=== PATIENT | male | born 1935 | race Caucasian/White ===

== ENCOUNTER → 2023-05-27 | Outpatient (CLI) | payer MEDICARE, OTHER, SELFPAY ==
--- NOTE | 2023-05-27 | IMM_PTH ---
PATIENT: CHRISTIANE HOLLAND LOC: [facility] U#:[id number] AGE/SX: 87/M ROOM: RE05/27/[address]: Dr. Tomasz Snow MD : 1935 BED: DIS: 05/27/2023 SPEC #: [id number] RECD: 05/29/23 14:06 STATUS: JOHAN RERadha #: [id number] MELISSA: 05/27/23 00:[address]: Tomasz Snow DEPT: IMMUNOHISTOCHEMISTRY RECD BY: Erma Alberto Tissues: B - PROSTATE RIGHT F - PROSTATE LEFT A - PROSTATE RIGHT Procedures: 34BE12 (add) P40 (add) 34BE12 (initial) PHYSICIAN & INSTITUTION [place] [id number] SPECIMEN INFORMATION: Tissue Source: A - Right apex prostate, B - Right mid prostate, F - Left base prostate Clinical Info: Elevated PSA Specimen Number: [id number] A, B & F CPT code: 51536, 45103 x5 METHODOLOGY: Deparaffinized sections of prefer/formalin-fixed tissue or PAP/DQ stained slides are incubated with monoclonal/polyclonal antibodies/oligonucleotide probes. Localization is made via biotin free immunoperoxidase method. Appropriate controls are performed and reacted as expected. Results on target cell population are indicated in the following table: RESULTS: ANTIBODY / CLONE RESULT Block A 34BE12 (34BE12) positive P40 (BC28) positive Block B 34BE12 (34BE12) negative P40 (BC28) negative Block F 34BE12 (34BE12) positive P40 (BC28) positive These tests were developed and their performance characteristics determined by [facility]. They may not have been cleared or approved by the U.[place]. Food and Drug Administration. The FDA has determined that such clearance or approval is not necessary. The above immunohistochemical/dualISH markers are ordered and reviewed by the Pathologist. INTERPRETATION: A. Right prostate, apex, core biopsy: Benign prostatic tissue. B. Right prostate, mid, core biopsy: Adenocarcinoma. F. Left prostate, base, core biopsy: Benign prostatic tissue. AM:dominic 05/30/2023
--- NOTE | 2023-05-27 13:30 | PROSBIL_PTH ---
PATIENT: CHRISTIANE HOLLAND LOC: [facility]#:[id number] AGE/SX: 87/M ROOM: RE05/27/[address]: Dr. Tomasz Snow MD : 1935 BED: DIS: 05/27/2023 SPEC #: [id number] RECD: 05/28/23 07:55 STATUS: JOHAN MARROQUIN #: [id number] MELISSA: 05/27/23 13:[address]: Tomasz Snow DEPT: SURGICAL PATHOLOGY RECD BY: Erma Alberto Tissues: A - PROSTATE RIGHT B - PROSTATE RIGHT C - PROSTATE RIGHT D - PROSTATE LEFT E - PROSTATE LEFT F - PROSTATE LEFT Procedures: PROSTATE BX HEADER OPERATION: Prostate biopsy PRE-OP DIAGNOSIS: Elevated PSA TISSUE SUBMITTED: A - Right apex, B - Right mid, C - Right base, D - Left apex, E - Left mid, F - Left base MICROSCOPIC DIAGNOSIS A. Right prostate, apex, core biopsy: Chronic prostatitis. B. Right prostate, mid, core biopsy: Adenocarcinoma. [place] grade: 6 (3+3) Cores involved: 1 out of 1 core Tissue involved: 5% Greatest tumor length: 1.5 millimeters See comment. C. Right prostate, base, core biopsy: Chronic inflammation. D. Left prostate, apex, core biopsy: Chronic prostatitis with focal acute prostatitis. E. Left prostate, mid, core biopsy: Chronic prostatitis. F. Left prostate, base, core biopsy: Chronic prostatitis. See comment. AM:dominic 05/29/2023 COMMENT B & F. Immunohistochemistry ([id number]) supports the above diagnosis. Case has been reviewed in consultation with Dr. Bean who concurs with the above diagnosis. IDC:[email or web address] MICROSCOPIC DESCRIPTION Slides are reviewed. GROSS DESCRIPTION A - Received is one container designated prostate, right apex. The specimen consists of one elongated fragment of light hansen-white soft tissue measuring 1.3 cm in length and 0.1 cm in diameter. The specimen is totally submitted in one cassette. B - Received is one container designated prostate, right mid. The specimen consists of one elongated fragment of light hansen-white soft tissue measuring 1.5 cm in length and 0.1 cm in diameter. The specimen is totally submitted in one cassette. C - Received is one container designated prostate, right base. The specimen consists of one elongated fragment of light hansen-white soft tissue measuring 1.5 cm in length and 0.1 cm in diameter. The specimen is totally submitted in one cassette. D - Received is one container designated prostate, left apex. The specimen consists of one elongated fragment of light hansen-white soft tissue measuring 1.6 cm in length and 0.1 cm in diameter. The specimen is totally submitted in one cassette. E - Received is one container designated prostate, left mid. The specimen consists of one elongated fragment of light hansen-white soft tissue measuring 1.4 cm in length and 0.1 cm in diameter. The specimen is totally submitted in one cassette. F - Received is one container designated prostate, left base. The specimen consists of one elongated fragment of light hansen-white soft tissue measuring 1.8 cm in length and 0.1 cm in diameter. The specimen is totally submitted in one cassette. / SJ:rg 05/28/2023 TC:0 CPT: G0146
== END | disposition home or self-care (01) ==
LOC: LABSPEC 15:46
PROVIDERS: Referring Provider Urology; Visit Provider Urology
DX: R97.20 Elevated prostate specific antigen [PSA] (principal)
CPT/HCPCS: 88305; 88341; 88342; G0416

== ENCOUNTER → 2024-02-16 | Outpatient (CLI) | payer MEDICARE, OTHER, SELFPAY | END | disposition home or self-care (01) | LOC: LAB 16:38 | PROVIDERS: PCP Student in an Organized Health Care Education/Training Program; Referring Provider Urology; Visit Provider Urology | DX: C61 Malignant neoplasm of prostate (principal) | CPT/HCPCS: 36415; 84153 ==

== ENCOUNTER → 2024-03-02 | Outpatient (CLI) | payer MEDICARE, OTHER, SELFPAY ==
--- NOTE | 2024-03-02 17:18 | CT_ITS ---
STUDY: CT ABDOMEN AND PELVIS WITH AND WITHOUT CONTRAST REASON FOR EXAM: Male, 88 years old. Gross Hematuria. Patient is on anticoagulants. Partial bowel resection. RADIATION DOSAGE (If Supplied By Facility): CTDIvol = ( 12.44 ) mGy, DLP = ( 1023.02 ) mGycm TECHNIQUE: Transaxial images were obtained from the dome of the diaphragm to the symphysis pubis without oral contrast. IV 100mL Isovue-370 was administered. Sagittal and coronal images were reconstructed. Individualized dose optimization techniques were used for this CT. COMPARISON: None. FINDINGS: Bilateral pleural effusions with bibasilar atelectasis and/or infiltrate. Loss of volume in the left hemithorax. There is a 3.8 cm x 1.8 cm pleural-based density in the lower hemithorax. A neoplastic process should be ruled out. Coronary artery calcification. Cardiomegaly. Small pericardial effusion. Normal liver. Normal gallbladder and extrahepatic biliary system. There is a faint 1.1 some hypodensity in the anterior midportion of the spleen. This is not a typical cyst. Normal pancreas. Normal bilateral adrenal glands. Normal right kidney. Normal left kidney. There is a small hiatal hernia. Normal small intestine. Partial right hemicolectomy. The patient is status post appendectomy. There is diffuse atherosclerotic calcification of the abdominal aorta and its major visceral branches, without a demonstrated aneurysm. Normal inferior vena cava. There is retroperitoneal lymphadenopathy with enlarged nodes greater than 10-15mm in the short axis. Normal urinary bladder. Prostatic enlargement with indentation at the bladder base. Calcification within the prostate. Normal abdominal wall. There are diffuse degenerative changes of the visualized lumbar spine. Loss of the normal lumbar lordosis. Findings suggestive of metastatic deposits seen within the axial and appendicular skeletons. CT/CT Abd/Pelvis W/WO Contrast IMPRESSION: Bilateral pleural effusions and pericardial effusion. Bibasilar infiltration and/or atelectasis with possible pleural-based mass in the left lateral aspect of the hemithorax. Prostatic enlargement with indentation at the bladder base. Partial right hemicolectomy. Findings suggestive of bony metastasis. Electronically Signed: Giuseppe Abdullahi MD at 14:45 EDT ,
== END | disposition home or self-care (01) ==
LOC: CT 17:05
PROVIDERS: PCP Student in an Organized Health Care Education/Training Program; Referring Provider Urology; Visit Provider Urology
DX: R31.0 Gross hematuria (principal)
CPT/HCPCS: 74178; Q9967

== ENCOUNTER → 2024-03-09 | Outpatient (CLI) | payer MEDICARE, OTHER, SELFPAY ==
[2024-03-02 21:11] LABS: CREATININE FINGERSTICK < 1.0 mg/dL (0.70-1.30); EGFR FINGERSTICK > 60.0000 mL/min (>60)
--- NOTE | 2024-03-09 10:15 | NM_ITS ---
CLINICAL: 88-year-old male with history of primary prostate carcinoma. WHOLE BODY 99m Tc MDP RADIONUCLIDE BONE SCINTIGRAPHY COMPARISON: CT of the abdomen-pelvis report 03/02/2024 FINDINGS: Following the intravenous administration of 26.8 mCi of 99m Tc MDP, whole body bone images reveal: 1. Multifocal increased tracer uptake is identified in the axial skeleton, too many to individually articulate, focal increased uptake noted in the bilateral proximal femoral metaphysis, the left distal femoral diaphysis and left proximal humeral diaphysis, right frontal skull. Increased uptake is noted in the medial tibial compartment of the right knee. 3. The remaining skeletal structures are scintigraphically unremarkable with normal-appearing renal images and urinary bladder activity identified. NM/Bone Scan Whole Body IMPRESSION: 1. Enhanced radiotracer distribution defined in the appendicular and axial skeleton is consistent with disseminated osseous metastatic disease. 2. 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 Electronically Signed: Blaze Nolan DO at 11:17 EDT ,
== END | disposition home or self-care (01) ==
PROVIDERS: PCP Student in an Organized Health Care Education/Training Program; Referring Provider Urology; Visit Provider Urology
DX: C61 Malignant neoplasm of prostate (principal)
CPT/HCPCS: 78306; A9503